=== PATIENT | male | born 1990 | race Two or more races ===

== ENCOUNTER 2019-01-29 17:18 | Emergency (ER) | payer SELFPAY ==
[~2019-01-29] VITALS: Ht 172.7 cm; Wt 70.3 kg
[2019-01-29 19:00] VITALS: BP 152/80
[2019-01-29 19:06] LABS: BASO # 0.1 x10^3/uL (0.0-0.2); BASO % 1 % (0-3); BILIRUBIN,URINE NEGATIVE (NEG); CLARITY,URINE CLEAR; COLOR,URINE YELLOW; EOS # 0.2 x10^3/uL (0.0-0.7); EOS % 2 % (0-3); HEMATOCRIT 46.9 % (39.0-53.0); HEMOGLOBIN 15.9 g/dL (13.0-17.5); LYMPH # 2.3 x10^3/uL (1.0-4.8); LYMPH % 25 % (24-48); MEAN CORPUSCULAR HEMOGLOBIN 31 pg (25-35); MEAN CORPUSCULAR HGB CONC 34 g/dL (31-37); MEAN CORPUSCULAR VOLUME 91 fL (79-100); MONO # 0.8 x10^3/uL (0.0-1.1); MONO % 9 % (0-9); NEUT # 5.7 x10^3uL (1.8-7.7); NEUT % 63 % (31-73); NITRITE,URINE NEGATIVE (NEG); PH,URINE 6.5; PLATELET COUNT 229 x10^3/uL (140-400); PROTEIN,URINE NEGATIVE (NEG-TRACE); RED BLOOD COUNT 5.19 x10^6/uL (4.30-5.70); RED CELL DISTRIBUTION WIDTH 13.2 % (11.5-14.5); UROBILINOGEN,URINE 0.2 mg/dL (0.2 mg/dL)
[2019-01-29 19:12] LABS: CALCIUM 9.1 mg/dL (8.5-10.1); CREATININE 0.9 mg/dL (0.7-1.3); GFR 99.1; POTASSIUM 3.8 mmol/L (3.5-5.1)
[2019-01-29 19:18] LABS: ALBUMIN/GLOBULIN RATIO 1.1 (1.0-1.7); TOTAL BILIRUBIN 0.3 mg/dL (0.2-1.0); TOTAL PROTEIN 7.7 g/dL (6.4-8.2)
[2019-01-29 19:19] LABS: BACTERIA,URINE 0 /HPF (0-FEW); RBC,URINE 0 /HPF (0-2); WBC,URINE 0 /HPF (0-4)
[2019-01-29] MEDS ORDERED: OMEP40CA5 PO (19:24)
--- NOTE | 2019-01-29 19:24 | PHYS DOC ---
Past Medical History Alcohol Use: None Drug Use: None Adult General Chief Complaint Chief Complaint: ABDOMINAL PAIN HPI HPI Patient is 28 yo male who presents with complaint of abdominal burning and constipation for several weeks. He reports he was seen at "[facility]" in November (although his papers are from [facility]) and diagnosed with a parasite. Upon review of the papers the patient tested positive for H. Pylori breath test at the clinic and the remainder of the labs were unremarkable (including UA+cult, CBC, CMP, B12, folic acid, stool PCR). Patient was treated for H. Pylori with 2 week course of pepto bismol, amoxicillin, clarithromycin, omeprazole, and tinidazole. He reports after finishing the medications he had a few days of relief, however symptoms have returned. He describes his symptoms as abdominal burning, particularly in RUQ and RLQ, however occasionally the burning radiates to the L side of his abdomen, suprapubic region, and occasionally down into his testicles. He says he occasionally has chills or sweating, sometimes at night. He also notices occasional muscle/joint stiffness. Additionally, he reports that when the stomach burning gets really bad he also feels burning in his face and eyes. He reports that he does not notice a change in symptoms before or after eating. He denies change in weight or his clothes fitting any differently. He denies recent international travel. Patient reports he lives with a friend who does not have these symptoms. 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 He denies sick contacts. He reports he does not have a PCP. Review of Systems Review of Systems Constitutional: Admits chills. Admits sweats. Admits night sweats Eyes: Denies change in visual acuity, redness. Admits occasional eye burning Respiratory: Denies cough or shortness of breath [] Cardiovascular: Denies chest pain. Denies shortness of breath. GI: Admits abdominal burning. Denies nausea, vomiting, diarrhea. Admits constipation. Denies blood in stool : Denies dysuria or hematuria. Denies penile discharge. Denies testicular swelling. Musculoskeletal: Admits joint stiffness Integument: Denies rash or skin lesions [] Neurologic: Denies headache, focal weakness or sensory changes [] All other systems were reviewed and found to be within normal limits, except as documented in this note. Current Medications Current Medications Current Medications Medications (Trade) Dose Ordered Sig/Johnathan Start Time Stop Time Status Last Admin Dose Admin Acetaminophen (Tylenol) 650 mg 1X ONCE 01/29/19 19:30 01/29/19 19:31 DC 01/29/19 19:30 650 MG Multi-Ingredient Mouthwash/Gargle (Gi Cocktail) 20 ml 1X ONCE 01/29/19 19:30 01/29/19 19:31 DC 01/29/19 19:30 20 ML Allergies Allergies Allergies Coded Allergies Type Severity Reaction Last Updated Verified No Known Drug Allergies 01/29/19 No Physical Exam Physical Exam Constitutional: Well developed, well nourished, frustrated, no acute distress, non-toxic appearance. [] HENT: Normocephalic, atraumatic Eyes: PERRLA, EOMI Neck: Normal range of motion Cardiovascular:Heart rate regular rhythm, no murmur [] Lungs & Thorax: Bilateral breath sounds clear to auscultation [] Abdomen: Bowel sounds normal, soft, no tenderness to palpation, no masses, no pulsatile masses, negative Nelson's, no TTP over McBurney's point. Skin: Warm, dry, no erythema, no rash. [] Back: No tenderness, no CVA tenderness. [] Extremities: No tenderness, no cyanosis, no clubbing, ROM intact, no edema. [] Neurologic: Alert and oriented X 3, normal motor function, normal sensory function, no focal deficits noted. [] Psychologic: Affect normal, judgement normal, mood normal. [] Current Patient Data Vital Signs Vital Signs Date Time Temp Pulse Resp B/P (MAP) Pulse Ox O2 Delivery O2 Flow Rate FiO2 01/29/19 19:00 82 16 152/80 (104) 99 Room Air 01/29/19 18:23 98.3 98.3 Lab Values Laboratory Tests Test 01/29/19 18:57 White Blood Count 9.0 x10^3/uL (4.0-11.0) Red Blood Count 5.19 x10^6/uL (4.30-5.70) Hemoglobin 15.9 g/dL (13.0-17.5) Hematocrit 46.9 % (39.0-53.0) Mean Corpuscular Volume 91 fL (79-100) Mean Corpuscular Hemoglobin 31 pg (25-35) Mean Corpuscular Hemoglobin Concent 34 g/dL (31-37) Red Cell Distribution Width 13.2 % (11.5-14.5) Platelet Count 229 x10^3/uL (140-400) Neutrophils (%) (Auto) 63 % (31-73) Lymphocytes (%) (Auto) 25 % (24-48) Monocytes (%) (Auto) 9 % (0-9) Eosinophils (%) (Auto) 2 % (0-3) Basophils (%) (Auto) 1 % (0-3) Neutrophils # (Auto) 5.7 x10^3uL (1.8-7.7) Lymphocytes # (Auto) 2.3 x10^3/uL (1.0-4.8) Monocytes # (Auto) 0.8 x10^3/uL (0.0-1.1) Eosinophils # (Auto) 0.2 x10^3/uL (0.0-0.7) Basophils # (Auto) 0.1 x10^3/uL (0.0-0.2) Urine Collection Type Unknown Urine Color Yellow Urine Clarity Clear Urine pH 6.5 Urine Specific [place] 1.010 Urine Protein Negative mg/dL (NEG-TRACE) Urine Glucose (UA) Negative mg/dL (NEG) Urine Ketones (Stick) Negative mg/dL (NEG) Urine Blood Negative (NEG) Urine Nitrite Negative (NEG) Urine Bilirubin Negative (NEG) Urine Urobilinogen Dipstick 0.2 mg/dL (0.2 mg/dL) Urine Leukocyte Esterase Negative (NEG) Urine RBC 0 /HPF (0-2) Urine WBC 0 /HPF (0-4) Urine Bacteria 0 /HPF (0-FEW) Sodium Level 139 mmol/L (136-145) Potassium Level 3.8 mmol/L (3.5-5.1) Chloride Level 103 mmol/L (98-107) Carbon Dioxide Level 27 mmol/L (21-32) Anion Gap 9 (6-14) Blood Urea Nitrogen 12 mg/dL (8-26) Creatinine 0.9 mg/dL (0.7-1.3) Estimated GFR (Cockcroft-Gault) 99.1 BUN/Creatinine Ratio 13 (6-20) Glucose Level 91 mg/dL (70-99) Calcium Level 9.1 mg/dL (8.5-10.1) Total Bilirubin 0.3 mg/dL (0.2-1.0) Aspartate Amino Transferase (AST) 31 U/L (15-37) Alanine Aminotransferase (ALT) 32 U/L (16-63) Alkaline Phosphatase 67 U/L (46-116) Total Protein 7.7 g/dL (6.4-8.2) Albumin 4.0 g/dL (3.4-5.0) Albumin/Globulin Ratio 1.1 (1.0-1.7) Lipase 111 U/L (73-393) Laboratory Tests 01/29/19 18:57 Laboratory Tests 01/29/19 18:57 EKG EKG [] Radiology/Procedures Radiology/Procedures [] Course & Med Decision Making Course & Med Decision Making Patient is a 28 yo male who presents with complaint of 2 months of abdominal burning and constipation. Patient was seen at [facility] in November, diagnosed with H Pylori, and received treatment of clarithromycin, amoxicillin, tinidazole, omeprazole, and pepto-bismol. He reports he was asymptomatic for a few days but symptoms have returned. Vitals and physical exam are unremarkable, including soft nontender abdomen with normoactive bowel sounds q4 quadrants. He does not guard or react with palpation of abdomen. He complains that most of his "burning" pain is in RUQ and RLQ, however with deep palpation of RLQ he does not grimace or guard. Treated patient symptomatically with GI cocktail. Labs, including UA, CBC, CMP, were without any abnormalities. Without lab abnormalities or remarkable physical exam, felt the risk of exposing patient to radiation from CT outweighed possible findings. Discussed with patient that it is possible that his H Pylori has returned, which is causing his symptoms. Discussed that patient should follow up at [facility] and/or see a punch press operator helper (Stacey). Informed patient that today he would be discharged home with rx for omeprazole and should continue using pepto for the symptoms and docusate or maalox for the constipation. Patient USING [employer] voiced understanding and agreement with plan. Sophia Disclaimer Ronnieon Disclaimer This electronic medical record was generated, in whole or in part, using a voice recognition dictation system. Departure Departure Impression: Primary Impression: Gastritis Disposition: HOME, SELF-CARE Condition: STABLE Referrals: NO PCP (PCP) Scripts Omeprazole (OMEPRAZOLE) 40 Mg Capsule.dr 1 CAP PO DAILY, #30 CAP 0 Refills Prov: HANS POSADA MD 01/29/19 HANS POSADA MD Jan 29, 2019 19:24
[2019-01-29] MEDS ORDERED: ACETAMINOPHEN 325 MG TABLET. PO ONE (19:30)
[2019-01-29] MEDS ORDERED: LIDO:MAALOX 1:1 20 ML SINGLE DOSE. SWSW ONE (19:30)
== END 2019-01-29 20:13 | disposition home or self-care (01) ==
LOC: ER 17:18
DX: K29.60 Other gastritis without bleeding (principal); R61 Generalized hyperhidrosis; M25.60 Stiffness of unspecified joint, not elsewhere classified; K59.00 Constipation, unspecified
CPT/HCPCS: 36415; 80053; 81001; 83690; 85025; 99283